=== PATIENT | female | born 2000 | race Caucasian/White ===

== ENCOUNTER 2020-05-18 00:09 | Emergency (ER) | payer BC, OTHER ==
[2020-05-18] MEDS ORDERED: Acetaminophen/HYDROcodone 325-5 MG Tab PO ONE (00:15)
[2020-05-18] MEDS ORDERED: Ketorolac 60 MG/2 ML SDV IM ONE (00:16)
[2020-05-18] MEDS ORDERED: Cyclobenzaprine 10 MG Tab PO ONE (00:19)
--- NOTE | 2020-05-18 00:22 | EDM.PDOC ---
ED HPI GENERAL MEDICAL PROBLEM - General Stated Complaint: KNEE INJURY Time Seen by Provider: 05/18/20 00:10 Source of Information: Reports: Patient History Limitations: Reports: No Limitations - History of Present Illness INITIAL COMMENTS - FREE TEXT/NARRATIVE: Patient presented to the ED because of left knee and left ankle injury. She was going downstairs and missed a step. She then twisted her left knee and left ankle. She is able to ambulate but has 8/10 pain. - Related Data Allergies Allergy/AdvReac Type Severity Reaction Status Date / Time No Known Allergies Allergy Verified 05/18/20 00:16 Home Meds: Home Meds Cyclobenzaprine [Flexeril] 10 mg PO Q8H PRN #10 tablet 05/18/20 [Rx] Ibuprofen 800 mg PO Q8H #10 tablet 05/18/20 [Rx] Review of Systems - Review of Systems Review Of Systems: See Below Constitutional: Reports: No Symptoms Ears: Reports: No Symptoms Nose: Reports: No Symptoms Mouth/Throat: Reports: No Symptoms Respiratory: Reports: No Symptoms Cardiovascular: Reports: No Symptoms GI/Abdominal: Reports: No Symptoms Genitourinary: Reports: No Symptoms Musculoskeletal: Reports: Joint Pain Skin: Reports: No Symptoms Neurological: Reports: No Symptoms Psychiatric: Reports: No Symptoms ED EXAM, GENERAL - Physical Exam Exam: See Below Exam Limited By: No Limitations General Appearance: Alert, No Apparent Distress Ears: Normal External Exam Nose: Normal Inspection, Normal Mucosa Throat/Mouth: Normal Inspection, Normal Lips, Normal Teeth Head: Atraumatic, Normocephalic Respiratory/Chest: No Respiratory Distress Cardiovascular: Normal Peripheral Pulses, Regular Rate, Rhythm GI/Abdominal: Normal Bowel Sounds, Soft, Non-Tender Back Exam: Normal Inspection, Full Range of Motion Extremities: Normal Inspection, Other (tenderness and swelling over the lateral aspect of the left knee and left ankle) Course - Vital Signs Text/Narrative:: xray left knee and ankle-see result Toradol 60 mg IM x1 Flexeril 10 mg po x1 Zofran ODT 4 mg po x1 [place] 5/325, 2 po x1 - Orders/Labs/Meds Orders: Active Orders 24 hr Category Date Time Status Ankle Min 3V Lt [CR] Stat Exams 05/18/20 00:29 Ordered Knee 3V Lt [CR] Stat Exams 05/18/20 00:29 Ordered Meds: Medications Discontinued Medications Generic Name Dose Route Start Last Admin Trade Name Freq PRN Reason Stop Dose Admin Hydrocodone Bitart/Acetaminophen 2 tab 05/18/20 00:15 05/18/20 00:19 [place]ian 325-5 Mg PO 05/18/20 00:16 2 tab ONETIME ONE Administration Cyclobenzaprine HCl 10 mg 05/18/20 00:19 05/18/20 00:22 Flexeril PO 05/18/20 00:20 10 mg ONETIME ONE Administration Ketorolac Tromethamine 60 mg 05/18/20 00:16 05/18/20 00:19 Toradol IM 05/18/20 00:17 60 mg ONETIME ONE Administration Ondansetron HCl 4 mg 05/18/20 00:24 05/18/20 00:27 Zofran Odt PO 05/18/20 00:25 4 mg ONETIME ONE Administration Departure - Departure Time of Disposition: 01:00 Disposition: Home, Self-Care 01 Condition: Good Clinical Impression: Ankle sprain, Knee sprain - Discharge Information Prescriptions: Cyclobenzaprine [Flexeril] 10 mg PO Q8H PRN #10 tablet PRN Reason: Muscle Spasm Ibuprofen 800 mg PO Q8H #10 tablet Referrals: Sterling Cox MD [Primary Care Provider] - Additional Instructions: Please read discharge instructions on knee and ankle sprain Apply ice Elevate Take flexeril 10 mg every 8 hours as needed for pain Take ibuprofen 800 mg with tylenol 1000 mg every 8 hours as needed for pain. Take them both at the same time for better pain relief. Follow up as needed - My Orders Last 24 Hours: My Active Orders 05/18/20 00:29 Ankle Min 3V Lt [CR] Stat Knee 3V Lt [CR] Stat - Assessment/Plan Last 24 Hours: My Active Orders 05/18/20 00:29 Ankle Min 3V Lt [CR] Stat Knee 3V Lt [CR] Stat
[2020-05-18] MEDS ORDERED: Ondansetron 4 MG Tab.DIS PO ONE (00:24)
--- NOTE | 2020-05-21 10:48 | CR ---
INDICATION: Left ankle injury - missed a step on the stairs. LEFT ANKLE: Three views of the left ankle were obtained 05/18/20 - no comparison. The ankle mortise appears to be intact without a definite acute fracture or dislocation identified. There is a small calcific or bony density inferior to the lateral malleolus, which most likely represents a dystrophic soft tissue calcification from previous injury or possibly an old chip fracture fragment that did not unite. An avulsion chip fracture fragment of the an acute nature is difficult to entirely exclude, but is felt to be less likely with this appearance. Followup studies may be helpful in that regard. Normal bone density is noted. IMPRESSION: No definite acute fracture or dislocation. If symptoms persist - if occult fracture site is suspected clinically, re-examination in 10-14 days may be helpful. AKBARD
--- NOTE | 2020-05-21 10:50 | CR ---
INDICATION: Left knee injury, missed a step on the stairs/history of ACL and meniscus repair. LEFT KNEE: Three views of the left knee were obtained 05/18/20 - no comparison. Minimal hypertrophic change is noted at the medial intercondylar spine with no other hypertrophic change, fracture, dislocation or abnormal bone density identified. Slight prominence at the suprapatellar bursa raises question of a minimal knee joint effusion however, and should be correlated clinically in that regard. If soft tissue injury is suspected clinically, additional examination such as MRI may be helpful. MTDD
== END 2020-05-18 01:10 | disposition home or self-care (01) ==
LOC: FB.ED 00:09
DX: S93.402A Sprain of unspecified ligament of left ankle, initial encounter (principal); S83.92XA Sprain of unspecified site of left knee, initial encounter; X50.1XXA Overexertion from prolonged static or awkward postures, initial encounter
CPT/HCPCS: 73562-LT; 73610-LT; 96372; 99283; A9270-GY; J1885

== ENCOUNTER 2025-01-30 19:11 | Emergency (ER) | payer BC ==
[2025-01-30] MEDS ORDERED: Sodium Chloride 0.9% 10 ML Syringe FLUSH PRN (21:14)
[2025-01-30 21:33] LABS: BASOPHILS PERCENT AUTO 0.4 % (0.2-1.5); EOSINOPHILS PERCENT AUTO 0.3 % (0.6-8.1); HEMATOCRIT 39.3 % (34.2-48.2); HEMOGLOBIN 13.9 g/dL (11.4-15.5); LYMPHOCYTES ABSOLUTE AUTO 2.4 x10-3/uL (1.0-4.4); LYMPHOCYTES PERCENT AUTO 21.5 % (18.4-52.1); MEAN CORPUSCULAR HEMOGLOBIN 31.7 pg (23.9-33.9); MEAN CORPUSCULAR HGB CONC 35.4 g/dL (31.9-34.8); MEAN CORPUSCULAR VOLUME 89.6 fL (76.7-100.5); MEAN PLATELET VOLUME 8.5 fL (7.1-12.4); MONOCYTES ABSOLUTE AUTO 0.7 x10-3/uL (0.3-1.0); MONOCYTES PERCENT AUTO 6.5 % (4.4-15.7); NEUTROPHILS PERCENT AUTO 71.3 % (30.8-76.2); PLATELET COUNT,PLT 199 x10(3)uL (151-488); RED BLOOD CELL COUNT 4.38 x10(6)uL (3.60-5.20); RED CELL DISTRIBUTION WIDTH 11.6 % (12.3-16.5); WHITE BLOOD CELL COUNT,WBC 11.2 x10-3/uL (3.0-10.3)
[2025-01-30 21:37] LABS: BLOOD UREA NITROGEN,BUN 9 mg/dL (7-18); BUN/CREATININE RATIO 12.9 (9-20); CALCIUM 9.4 mg/dL (8.6-10.2); CARBON DIOXIDE,CO2 25 mmol/L (21-32); CHLORIDE,CL 105 mmol/L (100-110); CREATININE 0.7 mg/dL (0.55-1.02); ESTIMATED GFR 123 mL/min (>60); GLUCOSE RANDOM 100 mg/dL (80-116); POTASSIUM,K 3.5 mmol/L (3.5-5.3); SODIUM,NA 139 mmol/L (135-145)
[2025-01-30 21:43] LABS: A/G RATIO 1.1; ALANINE AMINOTRANSFERASE,ALT 54 U/L (12-36); ALBUMIN 3.9 g/dL (3.5-5.2); ALKALINE PHOSPHATASE 59 IU/L (56-112); ASPARTATE AMNIOTRANSFERASE,AST 17 IU/L (5-25); BILIRUBIN TOTAL 0.4 mg/dL (0.1-1.3); MAGNESIUM 1.8 mg/dL (1.8-2.5); PROTEIN TOTAL,TP 7.6 g/dL (6.0-8.0)
[2025-01-30 21:51] LABS: SEDIMENTATION RATE MANUAL 18 mm/hr (0-20)
[2025-01-30] MEDS: Iopamidol 755 Mg/ML 100 ML Bottle IV SCH (22:10)
== END 2025-01-30 23:03 | disposition home or self-care (01) ==
LOC: FB.ED 19:11
DX: G43.109 Migraine with aura, not intractable, without status migrainosus (principal)
CPT/HCPCS: 36415; 70496; 70498; 80053; 83735; 85025; 85651; 86140; 99284; Q9967